=== PATIENT | male | born 1950 | race Caucasian/White ===

== ENCOUNTER → 2018-07-30 | Outpatient (CLI) | payer OTHER ==
[~2018-07-30] VITALS: Ht 175.3 cm; Wt 90.7 kg
[~2018-07-30] MED LIST: ALBU0.63 IH; ASPI-555 PO; ATOR40TA71 PO; CARV6.25 PO; FENO145T37 PO; FLUT12AE IH; KRIL1CAP12 PO; LOSA50TA25 PO; MVIT PO; REGADENOSON 0.4 MG/5 ML PF SYG IVP SCH; TAMS-1 PO; TIOT18CA3 IH
== END | disposition home or self-care (01) ==
LOC: SHCH 08:35
PROVIDERS: ATTEND Internal Medicine Cardiovascular Disease
DX: R94.31 Abnormal electrocardiogram [ECG] [EKG] (principal); J44.9 Chronic obstructive pulmonary disease, unspecified
CPT/HCPCS: 78452; 93017; 96374; A9500 ×2; J2785

== ENCOUNTER → 2018-11-09 | Outpatient (CLI) | payer OTHER ==
[~2018-11-09] MED LIST changes: -LOSA50TA25 PO; +LOSA50TA64 PO; -REGADENOSON 0.4 MG/5 ML PF SYG IVP SCH
== END | disposition home or self-care (01) ==
LOC: RAH 13:54
PROVIDERS: ATTEND Urology
DX: N28.1 Cyst of kidney, acquired (principal)
CPT/HCPCS: 76770